=== PATIENT | female | born 1930 | race Caucasian/White ===

== ENCOUNTER 2018-12-18 12:30 | Inpatient (IN) | payer OTHER ==
[~2018-12-18] VITALS: Ht 152.4 cm; Wt 39.5 kg
[2018-12-18 12:41] VITALS: Ht 152.4 cm; Wt 39.5 kg
[2018-12-18 14:04] LABS: CALCIUM 8.8 mg/dL (8.5-10.1); CARBON DIOXIDE 29.5 mmol/L (21-32); CHLORIDE SERUM 94 mmol/L (98-107); CREATININE SERUM 0.5 mg/dL (0.6-1.0); GLUCOSE SERUM 121 mg/dL (74-106); SODIUM SERUM 131 mmol/L (136-145)
[2018-12-18 14:17] LABS: ALBUMIN 3.9 g/dL (3.4-5.0); ALKALINE PHOSPHATASE 79 U/L (46-116); ALT/SGPT 22 U/L (14-59); AST/SGOT 31 U/L (15-37); CHOLESTEROL 199 mg/dL (<200); LIPASE 211 IU/L (73-393); RED CELL DISTRIBUTION WIDTH 13.4 % (11.5-14.5); TOTAL PROTEIN, SERUM 7.7 g/dL (6.4-8.2); TRIGLYCERIDES 36 mg/dL (<150)
[2018-12-18 14:18] LABS: BASOPHIL % 0 % (0-2); CHOLESTEROL/HDL RATIO 1.8; HDL CHOLESTEROL 111 mg/dL (40-60); PLATELET COUNT 475 x10^3mcL (130-400)
[2018-12-18 14:19] LABS: FREE T4 0.94 ng/dL (0.76-1.46); FREE THYROXINE INDEX 2.2 ug/dL (1.4-4.5); T4(THYROXINE) 6.6 ug/dL (4.7-13.3)
[2018-12-18 14:21] LABS: T3 TOTAL 0.98 ng/mL
[2018-12-18 14:38] LABS: microscopic required? NO
[2018-12-18 14:47] LABS: UA SPECIFIC GRAVITY 1.015 (1.005-1.035); urine erythrocyte NEGATIVE (NEGATIVE)
[2018-12-18 17:46] VITALS: BP 163/74
[2018-12-18 21:33] VITALS: BP 122/67
[2018-12-19 06:09] VITALS: BP 129/81
[2018-12-19 06:18] LABS: BASOPHIL % 0.1 % (0-2); RED CELL DISTRIBUTION WIDTH 14.1 % (11.5-14.5)
[2018-12-19 06:42] LABS: ALBUMIN 3.5 g/dL (3.4-5.0); ALKALINE PHOSPHATASE 70 U/L (46-116); ALT/SGPT 25 U/L (14-59); AST/SGOT 37 U/L (15-37); BILIRUBIN TOTAL 0.86 mg/dL (0.20-1.00); CALCIUM 8.7 mg/dL (8.5-10.1); CARBON DIOXIDE 28.4 mmol/L (21-32); CHLORIDE SERUM 96 mmol/L (98-107); CREATININE SERUM 0.7 mg/dL (0.6-1.0); GLUCOSE SERUM 101 mg/dL (74-106); MAGNESIUM 2.2 mg/dL (1.8-2.4); PHOSPHOROUS 3.5 mg/dL (2.5-4.9); POTASSIUM SERUM 3.9 mmol/L (3.5-5.1); SODIUM SERUM 131 mmol/L (136-145); TOTAL PROTEIN, SERUM 6.9 g/dL (6.4-8.2)
[2018-12-19 06:56] LABS: PLATELET COUNT 407 x10^3mcL (130-400)
[2018-12-19 07:36] VITALS: BP 129/62
[2018-12-19 21:29] VITALS: BP 108/63
[2018-12-20 05:34] VITALS: BP 141/75
[2018-12-20 06:42] LABS: BASOPHIL % 0.3 % (0-2); PLATELET COUNT 398 x10^3mcL (130-400); RED CELL DISTRIBUTION WIDTH 13.9 % (11.5-14.5)
[2018-12-20 06:53] LABS: ALKALINE PHOSPHATASE 59 U/L (46-116); ALT/SGPT 25 U/L (14-59); AST/SGOT 32 U/L (15-37); CALCIUM 8.3 mg/dL (8.5-10.1); CARBON DIOXIDE 28.4 mmol/L (21-32); CHLORIDE SERUM 97 mmol/L (98-107); CREATININE SERUM 0.9 mg/dL (0.6-1.0); MAGNESIUM 2.3 mg/dL (1.8-2.4); PHOSPHOROUS 3.4 mg/dL (2.5-4.9); POTASSIUM SERUM 4.4 mmol/L (3.5-5.1); SODIUM SERUM 132 mmol/L (136-145); TOTAL PROTEIN, SERUM 6.5 g/dL (6.4-8.2)
[2018-12-20 07:06] LABS: ALBUMIN 3.1 g/dL (3.4-5.0)
[2018-12-20 07:08] LABS: GLUCOSE SERUM 102 mg/dL (74-106)
[2018-12-20 07:29] VITALS: BP 138/60
[2018-12-20 16:25] VITALS: BP 136/57
[2018-12-20 21:36] VITALS: BP 138/64
[2018-12-21 06:16] LABS: BASOPHIL % 0.1 % (0-2); PLATELET COUNT 356 x10^3mcL (130-400); RED CELL DISTRIBUTION WIDTH 13.8 % (11.5-14.5)
[2018-12-21 06:33] VITALS: BP 137/58
[2018-12-21 06:56] LABS: CALCIUM 7.9 mg/dL (8.5-10.1); CARBON DIOXIDE 27.5 mmol/L (21-32); CHLORIDE SERUM 96 mmol/L (98-107); CREATININE SERUM 0.5 mg/dL (0.6-1.0); GLUCOSE SERUM 97 mg/dL (74-106); POTASSIUM SERUM 4.5 mmol/L (3.5-5.1); SODIUM SERUM 129 mmol/L (136-145)
[2018-12-21 08:34] VITALS: BP 125/56
[2018-12-21 12:09] VITALS: BP 133/60
[2018-12-21 12:10] VITALS: BP 146/61
[2018-12-21 16:08] VITALS: BP 143/61; BP 150/60
[2018-12-21 21:33] VITALS: BP 144/82
[2018-12-22 06:15] LABS: BASOPHIL % 0.7 % (0-2); PLATELET COUNT 395 x10^3mcL (130-400); RED CELL DISTRIBUTION WIDTH 13.6 % (11.5-14.5)
[2018-12-22 06:18] VITALS: BP 146/63
[2018-12-22 09:34] VITALS: BP 147/64
[2018-12-22 16:17] VITALS: BP 147/64
== END 2018-12-22 17:50 | DRG 481 ==
LOC: ED 12:30 → MU 14:08
PROVIDERS: Internal Medicine Pulmonary Disease; Neuromusculoskeletal Medicine, Sports Medicine; Specialist; ADMIT Internal Medicine Pulmonary Disease
PROC: 0QS704Z Reposition Left Upper Femur with Internal Fixation Device, Open Approach (ICD-10-PCS; principal; 2018-12-19 13:30)
DX: S72.142A Displaced intertrochanteric fracture of left femur, initial encounter for closed fracture (principal); Z68.1 Body mass index [BMI] 19.9 or less, adult; R54 Age-related physical debility; E03.9 Hypothyroidism, unspecified; W07.XXXA Fall from chair, initial encounter; Y92.008 Other place in unspecified non-institutional (private) residence as the place of occurrence of the external cause
CPT/HCPCS: 76001; 83880; 84439; 97110-GP; 97116-GP; C1713; J0690; J1644; J1885; J2405; J2704; J3010; J7030; J7040; J7120; Q0092

== ENCOUNTER → 2019-07-14 | Emergency (ER) | payer OTHER ==
[~2019-07-14] VITALS: Ht 152.4 cm; Wt 40.8 kg
[2019-07-14 08:45] VITALS: Ht 152.4 cm; Wt 40.8 kg
[2019-07-14 09:24] LABS: BASOPHIL % 0.7 % (0-2)
[2019-07-14 09:27] LABS: RED CELL DISTRIBUTION WIDTH 18.1 % (11.5-14.5)
[2019-07-14 09:44] LABS: CALCIUM 8.8 mg/dL (8.5-10.1); CARBON DIOXIDE 32.7 mmol/L (21-32); CHLORIDE SERUM 98 mmol/L (98-107); CREATININE SERUM 0.6 mg/dL (0.6-1.0); GLUCOSE SERUM 94 mg/dL (74-106); POTASSIUM SERUM 4.5 mmol/L (3.5-5.1); SODIUM SERUM 135 mmol/L (136-145)
[2019-07-14 09:49] LABS: ALBUMIN 3.3 g/dL (3.4-5.0); ALKALINE PHOSPHATASE 72 U/L (46-116); ALT/SGPT 16 U/L (14-59); AST/SGOT 29 U/L (15-37); BILIRUBIN TOTAL 0.5 mg/dL (0.20-1.00); TOTAL PROTEIN, SERUM 7.2 g/dL (6.4-8.2)
[2019-07-14 09:50] LABS: PLATELET COUNT 661 x10^3mcL (130-400)
[2019-07-14 09:56] LABS: microscopic required? NO
[2019-07-14 10:20] LABS: UA SPECIFIC GRAVITY 1.015 (1.005-1.035); urine erythrocyte NEGATIVE (NEGATIVE)
[2019-07-14 20:10] VITALS: BP 112/50
== END ==
LOC: ED 08:33
PROVIDERS: Emergency Medicine
DX: S70.01XA Contusion of right hip, initial encounter (principal); W18.30XA Fall on same level, unspecified, initial encounter; Y93.89 Activity, other specified; Y92.89 Other specified places as the place of occurrence of the external cause; Y99.8 Other external cause status
CPT/HCPCS: 36415

== ENCOUNTER 2019-07-19 19:04 | Emergency (ER) | payer OTHER ==
[~2019-07-19] VITALS: Ht 152.4 cm; Wt 40.8 kg
[2019-07-19 19:25] VITALS: Ht 152.4 cm; Wt 40.8 kg
[2019-07-19 21:06] LABS: UA SPECIFIC GRAVITY <=1.005 (1.005-1.035); microscopic required? YES; urine erythrocyte TRACE (NEGATIVE)
[2019-07-19 21:28] VITALS: BP 136/58
== END 2019-07-19 21:29 | disposition home or self-care (01) ==
LOC: ED 19:04
PROVIDERS: Emergency Medicine
DX: M25.551 Pain in right hip (principal); N39.0 Urinary tract infection, site not specified
CPT/HCPCS: J0696

== ENCOUNTER 2019-08-11 10:03 | Emergency (ER) | payer OTHER ==
[~2019-08-11] VITALS: Ht 152.4 cm; Wt 40.8 kg
[2019-08-11 10:07] VITALS: Ht 152.4 cm; Wt 40.8 kg
[2019-08-11 10:29] LABS: microscopic required? NO
[2019-08-11 10:48] LABS: UA SPECIFIC GRAVITY 1.015 (1.005-1.035); urine erythrocyte NEGATIVE (NEGATIVE)
[2019-08-11 10:54] LABS: BASOPHIL % 0.8 % (0-2)
[2019-08-11 11:06] LABS: PLATELET COUNT 503 x10^3mcL (130-400)
[2019-08-11 11:08] LABS: T3 TOTAL 0.83 ng/mL
[2019-08-11 11:15] LABS: FREE T4 0.85 ng/dL (0.76-1.46); T4(THYROXINE) 7.1 ug/dL (4.7-13.3)
[2019-08-11 11:17] LABS: CK-MB 0.8 ng/mL (0-3.6)
[2019-08-11 11:27] LABS: CALCIUM 9.4 mg/dL (8.5-10.1); CARBON DIOXIDE 28.1 mmol/L (21-32); CHLORIDE SERUM 92 mmol/L (98-107); CREATININE SERUM 0.7 mg/dL (0.6-1.0); GLUCOSE SERUM 112 mg/dL (74-106); POTASSIUM SERUM 3.5 mmol/L (3.5-5.1); SODIUM SERUM 129 mmol/L (136-145)
[2019-08-11 11:38] LABS: ALKALINE PHOSPHATASE 114 U/L (46-116); ALT/SGPT 17 U/L (14-59); AST/SGOT 13 U/L (15-37); BILIRUBIN TOTAL 0.44 mg/dL (0.20-1.00); C REACTIVE PROTEIN 5.1 mg/dL (<=0.9)
[2019-08-11 11:48] LABS: ERYTHROCYTE SED RATE 26 mm/hr (0-30)
[2019-08-11 11:49] LABS: TOTAL PROTEIN, SERUM 8.5 g/dL (6.4-8.2)
[2019-08-11 12:29] VITALS: BP 122/64
== END 2019-08-11 12:29 | disposition home or self-care (01) ==
LOC: ED 10:03
PROVIDERS: Specialist
DX: N39.0 Urinary tract infection, site not specified (principal); E87.1 Hypo-osmolality and hyponatremia
CPT/HCPCS: 36600; 84439; 87804; Q0092